=== PATIENT | male | born 1970 | race Caucasian/White ===

== ENCOUNTER 2018-12-14 05:57 | Inpatient (IN) ==
--- NOTE | 2018-11-26 14:28 | PAT Medication Instructions ---
Medication Instructions Date of Service November 26, 2018 Home Medications ibuprofen [Advil] 200 mg PO Q6H PRN ASK your surgeon for instructions ibuprofen [Advil] 200 mg PO Q6H PRN Other Notes If you have any questions please call us at [phone] or [phone] or [phone] or [phone]
--- NOTE | 2018-11-27 12:10 | Anesthesiology Consultation ---
Date of Service November 27, 2018 Assessment & Plan (1) Encounter for pre-operative examination: Chart Review Chart Review: Acceptable Risk for Surgery and Patient seen in Pre Admission Testing Teaching & Discussion Instructed NPO after midnight before surgery, except medications with 15 cc of water. Medication instructions provided according to the PAT guidelines. History Surgery Operation Date: 12/14/18 10:05 Proposed Procedures p L3-L5 Decompression and Fusion, Possible L5-S1 - Zak Hdez DO Height/Weight Height: 6 ft 1 in Weight: 148.2 kg Allergies Allergy/AdvReac Type Severity Reaction Status Date / Time No Known Allergies Allergy Unknown Verified 11/24/18 14:01 Medications Home Medications Medication Instructions Recorded Confirmed Last Taken ibuprofen [Advil] 200 mg PO Q6H PRN 11/24/18 11/24/18 Unknown Past Medical History Medical History No significant medical problems (Chronic) Chronic back pain Morbid obesity Past Surgical History Surgical History Hx of hernia repair left Past Anesthesia History No Hx of Anesthesia Complications and No Family Hx of Anesthesia Complications History of PONV No Motion Sickness Screening History of Motion Sickness: No Social History Smoking Status: Never smoker Do You Dip or Chew Tobacco: Yes (ADVISED NONE AM DOS) Hx Alcohol Use: Yes Alcohol type: beer alcohol intake frequency: 3 or more drinks per day Hx Substance Use: No Exercise / Class Metabolic Activity II 4-5 Yardwork/Stairs/Walk up hill (denies cp or sob with stairs) Review of Systems Pt denies any recent chest pain, shortness of breath, palpitations, cough, fever or URI. Physical Exam Vital Signs BP: 128/80 P: 67bpm SPO2: 97% RA T: 98.3 F R: 16 ENMT Mouth: + dental restorations (few crowns) and + chipped teeth (few); no loose teeth Thyromental Distance: > or= 3.5 Finger Breadths (3.5) Mallampati Class: II Neck + thick neck; neck extension not limited Respiratory normal respiratory effort Auscultation: lungs clear to auscultation bilaterally Cardiovascular Rate/Rhythm: regular rate and regular rhythm Heart Sounds: no murmur Vessels: no carotid bruit Extremities: no edema Testing Electrocardiogram Date: 11/27/18 Findings: + NSR @ (64) Nonspecific TWA in lateral leads, and non-specific change in ST segment in inferior leads. Since 06/24/05 EKG, nonspecific changes are now evident. Chest X-Ray Date: 11/27/18 Findings: + NAD Laboratory Results 11/27/18 11:38 11/27/18 11:38 Blood Type A Positive 11/27/18 11:38 Antibody Screen NEGATIVE 11/27/18 11:38 PT 10.3 Seconds (9.0-12.0) 11/27/18 11:38 INR 1.0 (0.9-1.1) 11/27/18 11:38 APTT 27.0 Seconds (21.0-31.0) 11/27/18 11:38 Urine Color Yellow 11/27/18 Unknown Urine Appearance Clear (Clear) 11/27/18 Unknown Urine pH 5.5 (4.5-7.5) 11/27/18 Unknown Ur Specific [place] 1.025 (1.000-1.030) 11/27/18 Unknown Urine Protein Negative (Negative) 11/27/18 Unknown Urine Glucose (UA) Negative (Negative) 11/27/18 Unknown Urine Ketones Trace (Negative) H 11/27/18 Unknown Urine Nitrite Negative (Negative) 11/27/18 Unknown Ur Leukocyte Esterase Negative (Negative) 11/27/18 Unknown
--- NOTE | 2018-11-27 12:35 | XRay Report ---
XR chest Pre-admission PA/Lat CLINICAL HISTORY: Preoperative evaluation. COMPARISON STUDY: No previous studies for comparison. FINDINGS: Lung volumes are normal. There is no pneumothorax or pleural effusion. There is no consolid ation or evidence for pulmonary edema. Cardiac size is normal. Mediastinal contours are normal. IMPRESSION: No acute cardiopulmonary findings. Electronically signed by: Philip Cee M.D. 11/27/2018 12:34 PM
[2018-11-27 13:02] LABS: Basophils # (auto) 0.01 K/uL (0-0.2); Basophils % (auto) 0.2 %; Eosinophils # (auto) 0.09 K/uL (0-0.5); Eosinophils % (auto) 1.4 %; Hematocrit (blood only) 42.2 % (42-52); Hemoglobin 15.3 g/dL (14.0-18.0); Immature Granulocytes # (auto) 0.01 K/uL (0.00-0.02); Immature Granulocytes % (auto) 0.2 %; Lymphocytes # (auto) 2.03 K/uL (1.2-3.4); Lymphocytes % (auto) 31.9 %; Mean Corpuscular Hgb Conc 36.3 g/dL (32-36); Mean Corpuscular Volume 90.9 fL (80-100); Monocytes # (auto) 0.72 K/uL (0.11-0.59); Monocytes % (auto) 11.3 %; Platelet Count 235 K/uL (130-400); RDW Coefficient of Variation 12.5 % (11.5-14.5); RDW Standard Deviation 41.8 fL (36.4-46.3); Red Blood Count 4.64 M/uL (4.7-6.1); White Blood Count 6.36 K/uL (4.8-10.8)
[2018-11-27 13:04] LABS: Appearance Urine Clear (Clear); Bilirubin Urine Negative (Negative); Blood Urine Negative (Negative); Color Urine Yellow; Glucose Urine UA Negative (Negative); Ketones Urine Trace (Negative); Leukocyte Esterase Urine Negative (Negative); Nitrite Urine Negative (Negative); Protein Urine Negative (Negative); Specific Gravity Urine 1.025 (1.000-1.030); Urobilinogen Urine Negative (Negative); pH Urine 5.5 (4.5-7.5)
[2018-11-27 13:14] LABS: BUN Creatinine Ratio 13.1 (10-20); Calcium 8.9 mg/dl (8.5-10.1); Creatinine Clr Calc Pharmacy 150.6 ml/min; Est GFR (African American) 115.8; Est GFR (Non-African American) 99.9; Potassium 3.8 mmol/L (3.5-5.1)
[2018-11-27 13:18] LABS: Prothrombin Time 10.3 Seconds (9.0-12.0)
[2018-12-14] MEDS ORDERED: CeleBREX 200 MG CAP PO SCH (06:00)
[2018-12-14] MEDS ORDERED: ACETAMINOPHEN 500 MG TAB PO SCH (06:00)
[2018-12-14] MEDS ORDERED: CEFAZOLIN 3000MG 65 ML IV SCH (06:00)
[2018-12-14] MEDS ORDERED: GABAPENTIN 300 MG x 3 PO SCH (06:00)
[2018-12-14] MEDS ORDERED: LR 15ML/HR IV SCH (06:00)
[2018-12-14] MEDS ORDERED: fentaNYL citrate 100 MCG/2 ML VIAL ONE ×5 (06:37→09:57)
[2018-12-14] MEDS ORDERED: MIDAZOLAM HCL 1 MG/ML 2ML VIAL ONE (06:37)
[2018-12-14] MEDS ORDERED: ONDANSETRON INJ 2 MG/ML 2 ML VIAL IV PRN ×2 (06:48→12:31)
[2018-12-14] MEDS ORDERED: ePHEDrine sulfate 50 MG/ML AMP IV PRN (06:48)
[2018-12-14] MEDS ORDERED: HYDROmorphone INJ 2 MG/ML SYR/VIAL IV PRN (06:48)
[2018-12-14] MEDS ORDERED: ATROPINE SULFATE 0.1 MG/ML 10ML SYR IV PRN (06:48)
[2018-12-14] MEDS ORDERED: PROPOFOL IV EMULSION 10 MG/ML 100 ML VIAL IV ONE (06:58)
[2018-12-14] MEDS ORDERED: BUPIVACAINE/EPINEPHRINE 0.5% MPF 1:200,000 30 ML VIAL ONE (06:58)
[2018-12-14] MEDS ORDERED: BACITRACIN INJ 50,000 UNIT VIAL ONE (06:58)
--- NOTE | 2018-12-14 07:26 | History & Physical Bridge Note ---
Date of Service December 14, 2018 History & Physical Bridge Note I have examined the patient, reviewed the History & Physical and in the interval since the performance of the History & Physical I have noted the following changes of clinical significance: no changes noted
--- NOTE | 2018-12-14 07:29 | History & Physical Report ---
Date of Service December 14, 2018 Assessment & Plan (1) Spinal stenosis, lumbar region with neurogenic claudication: L3-5 decompression and fusion possible L5-S1 Present on Admission?: Yes History of Present Illness Chief Complaint: Back and leg pain Primary Care Provider: Krishna Sharpe MD Chronic persistent back and leg pain. After failing extensive course of nonoperative care he is here for surgical intervention. Allergies Allergy/AdvReac Type Severity Reaction Status Date / Time No Known Allergies Allergy Unknown Verified 12/14/18 06:30 Home Medications Home Medications Medication Instructions Recorded Confirmed Type ibuprofen [Advil] 200 mg PO Q6H PRN 11/24/18 12/14/18 History Past Med/Surg History Medical History No significant medical problems (Chronic) Chronic back pain Morbid obesity Surgical History Hx of hernia repair left Social History Preferred Language: Hungarian Communication Ability: Effective Beliefs That Will Affect Care: None Current Living Situation: Spouse current occupational status: employed Other Information That Helps Us Care for You: No Feels Safe at Home: Yes Safety Concerns: Feels Safe At This Time Smoking Status: Never smoker Do You Dip or Chew Tobacco: Yes (ADVISED NONE AM DOS) Second Hand Exposure: No Hx Alcohol Use: Yes Alcohol type: beer Hx Substance Use: No Physical Exam Vital Signs (Past 24 Hours): Last Vital Signs Temp 36.8 C 12/14/18 06:25 Pulse 62 12/14/18 06:25 Resp 18 12/14/18 06:25 BP 145/91 H 12/14/18 06:25 Pulse Ox 97 12/14/18 06:25 Physical Exam: Patient is alert and oriented neurologically intact
[2018-12-14] MEDS ORDERED: HYDROmorphone INJ 2 MG/ML SYR/VIAL ONE ×2 (08:01→10:26)
[2018-12-14] MEDS ORDERED: GLYCOPYRROLATE 0.2 MG/ML VIAL ONE (08:19)
[2018-12-14] MEDS ORDERED: PROPOFOL IV EMULSION 10 MG/ML 20 ML VIAL IV ONE (08:19)
[2018-12-14] MEDS ORDERED: LARYING-O-JET KIT (LTA) ONE (08:19)
[2018-12-14] MEDS ORDERED: LIDOCAINE HCL 2% 2 ML VIAL/AMP(20MG/ML) INFIL ONE (08:19)
[2018-12-14] MEDS ORDERED: NEOSTIGMINE METHYLSULFATE 1 MG/ML 10ML VIAL ONE (08:19)
[2018-12-14] MEDS ORDERED: ONDANSETRON INJ 2 MG/ML 2 ML VIAL ONE (08:19)
[2018-12-14] MEDS ORDERED: ROCURONIUM BROMIDE 10 MG/ML 5 ML VIAL ONE (08:19)
[2018-12-14] MEDS ORDERED: DEXAMETHASONE SOD INJ 4 MG/ML VIAL ONE (08:19)
[2018-12-14] MEDS ORDERED: FLOSEAL HEMOSTATIC MATRIX 10ML TOP ONE (08:28)
--- NOTE | 2018-12-14 10:17 | Operative Report ---
Post Operative Report Pre & Post Diagnosis Operation Date: 12/14/18 07:45 Pre-Op Diagnosis: Spinal stenosis, lumbar region with neurogenic claudication Lumbar spondylolisthesis L4-5. Morbid obesity. Post-Op Diagnosis: Same Procedure Operation Date: 12/14/18 07:45 Actual Procedures #1 lumbar decompression bilateral medial facetectomies foraminotomies L2-3 L3-4 L4-5. #2 posterior spinal fusion L3-4 L4-5. #3 placed posterior segmental instrumentation L3-4 L4-5 per #4 interbody fusion L3-4 L4-5 per #5 placement of titanium 14 x 26 mm cage at L4-5 and 12 x 26 mm cage at L3-4. #6 placement of local autograft in the posterior lateral gutters. #7 placement infuse collagen sponge combined with mass graft in the posterior lateral gutters and ostial amp and interbody space. Surgeon Zak Hdez, DO Security Sales Manager Kathrin Barreto Estimated Blood Loss 550 Findings See Below Patient is 6 foot 1 inch and 146 kg with a BMI of 42.6. This combined with the blood loss in excess of 500 cc made t technically difficult adding at least an increase of 25% in operative time. Specimens None Indications This is a 48-year-old male who presents with spinal stenosis spinal listhesis and failed extensive course of nonoperative care like to undergo the above- mentioned procedure. Description of Procedure Patient was met with identified and informed consent obtained. He was then taken to the operative suite underwent intubation and placed in a prone position the Jorge table on top of the Luis frame. All bony prominences well-padded eyes inspected to ensure no external pressure placed upon the peer at this point the lumbar spine was prepped and draped in normal sterile fashion. Sharp dissection with the assistance of Bovie cautery was performed down to and exposing the lamina and transverse processes of L3-L4-L5 bilaterally. From a caudal to cephalad fashion complete laminectomy of L4 L3 partial laminectomy of L2 was performed including bilateral medial facetectomies and foraminotomies addressing severe stenosis. Pedicle screws were then placed in L3 L4-5 bilaterally with assistance of fluoroscopy and the probably size samia placed. By way of a transforaminal approach on the right complete discectomy of L4-5 was performed in plate graded to subcortical bleeding bone and a 14 x 26 mm titanium cage filled with osteo-amp bone graft tapped in position. I then proceeded L3-4 and again through a transforaminal approach on the right complete discectomy performed in plate coated to subcortical mean bone and a 12 x 26 mm titanium cage filled with osteo-amp bone graft tapped in position. Rods were then compressed locked in final position bilaterally. The transverse processes of L3-L4-L5 bur to subcortical bleeding bone. Infuse collagen sponge master graft local autograft placed in the posterior lateral gutters. 15 round LISBET drain inserted. Incision was then closed with 1 Vicryl in the fascia 2-0 Vicryl subcutaneous layer and 4-0 Monocryl for final skin closure. Steri-Strip sterile dressing placed. Patient will continue PACU stable disc. Please note Kathrin Barreto present at the entire procedure involved in patient positioning complex portions of the surgery and final skin closure. Lastly spinal cord monitoring was utilized throughout the procedure no changes were noted. I attest to the content of the Intraoperative Record and any orders documented therein. Any exceptions are noted below.
--- NOTE | 2018-12-14 10:21 | Fluoroscopy Report ---
LUMBAR SPINE, INTRAOPERATIVE FLUOROSCOPY HISTORY: L3-L5 posterior decompression and fusion. FLUOROSCOPY TIME: 18. FINDINGS: Intraoperative fluoroscopy was provided for the lumbar spine. 2 fluoroscopic spot images we re obtained. Posterior decompression fusion from L3 through L5 with pedicle screws and rods. The hard almaraz appears intact. IMPRESSION: Fluoroscopy provided for a L3-L5 posterior decompression and fusion. Electronically signed by: Shad Lloyd M.D. 12/14/2018 10:20 AM
[2018-12-14] MEDS ORDERED: KETOROLAC 30 MG/ML VIAL ONE (10:22)
[2018-12-14] MEDS ORDERED: ESMOLOL HCL INJ 10 MG/ML 10ML VIAL IV ONE (10:22)
[2018-12-14] MEDS: fentaNYL citrate 100 MCG/2 ML VIAL IV PRN ×2 (11:06→11:20)
--- NOTE | 2018-12-14 11:36 | Anesthesiology Progress Note ---
Date of Service December 14, 2018 Anesthesia Post Procedure Vital Signs Vital Signs: Temp Pulse Pulse Resp BP Pulse Ox 12/14/18 11:30 74 17 114/80 95 12/14/18 11:20 69 15 123/89 96 12/14/18 11:10 84 14 149/91 H 98 12/14/18 11:00 87 21 154/82 H 99 12/14/18 10:51 36.3 C L 89 17 151/80 H 99 12/14/18 06:25 36.8 C 62 18 145/91 H 97 Pain Intensity Lower Back: Pain Intensity: 3 Transfer of Care Handoff Completed per policy Notes Mental Status: alert / awake / arousable and participated in evaluation Patient Amnestic to Procedure: Yes Nausea / Vomiting: adequately controlled Pain: adequately controlled Airway Patency, RR, SpO2: stable & adequate BP & HR: stable & adequate Hydration State: stable & adequate Anesthetic Complications: no major complications apparent and Pt Satisfied with anesthetic care
[2018-12-14] MEDS ORDERED: ePHEDrine sulfate 50 MG/ML SYR ONE (11:51)
[2018-12-14] MEDS ORDERED: VOLUVEN IN NSS IV ONE (12:16)
[2018-12-14] MEDS ORDERED: DO NOT ADMINISTER PNEUMOCOCCAL VACCINE PRN (12:31)
[2018-12-14] MEDS ORDERED: METOCLOPRAMIDE HCL INJ 5 MG/ML 2 ML VIAL IV PRN (12:31)
[2018-12-14] MEDS ORDERED: PROMETHAZINE HCL 12.5 MG in SODIUM CHLORIDE 0.9% 50 ML IV PRN (12:31)
[2018-12-14] MEDS ORDERED: HYDROmorphone INJ 0.5 MG/0.5 ML SYR IV PRN (12:31)
[2018-12-14] MEDS ORDERED: LORazepam 0.5 MG TAB PO PRN (12:31)
[2018-12-14] MEDS ORDERED: LORazepam 0.5 MG/1 ML VIAL IV PRN (12:31)
[2018-12-14] MEDS ORDERED: ONDANSETRON 4 MG TAB PO PRN (12:31)
[2018-12-14] MEDS ORDERED: ACETAMINOPHEN 1,000 MG/100 ML VIAL IV PRN (12:31)
[2018-12-14] MEDS ORDERED: FAMOTIDINE 20 MG TAB PO PRN (12:31)
[2018-12-14] MEDS ORDERED: DO NOT ADMINISTER FLU VACCINE PRN (12:31)
[2018-12-14] MEDS ORDERED: MAGNESIUM HYDROXIDE SUSP 30 ML UDC PO PRN (12:31)
[2018-12-14] MEDS ORDERED: SOD PHOSPHATE/SOD BIPHOSPHATE ENEMA 132 ML BTL PR PRN (12:31)
[2018-12-14] MEDS ORDERED: BISACODYL 10 MG SUPP PR PRN (12:31)
[2018-12-14] MEDS ORDERED: ALUMINUM/MAGNESIUM SUSP 30 ML UDC PO PRN (12:31)
[2018-12-14] MEDS: LACTATED RINGER'S 1,000 ML IV SCH ×2 (13:06→19:34)
[2018-12-14] MEDS: KETOROLAC 30 MG/ML VIAL IV SCH ×2 (14:18→19:29)
[2018-12-14] MEDS: CEFAZOLIN 2000MG 2,000 MG/15 ML SYR IV SCH ×2 (16:20→23:53)
[2018-12-14] MEDS: OXYCODONE HCL IR 5 MG TAB (IMMEDIATE RELEASE) PO PRN (16:34)
[2018-12-14] MEDS: DOCUSATE SODIUM/SENNA 50/8.6MG TAB PO SCH (21:10)
[2018-12-15] MEDS: LACTATED RINGER'S 1,000 ML IV SCH (02:20)
[2018-12-15] MEDS: KETOROLAC 30 MG/ML VIAL IV SCH ×2 (02:21→07:40)
[2018-12-15] MEDS: POLYETHYLENE (MIRALAX) 17 GM PACK PO SCH ×3 (05:44→19:41)
[2018-12-15] MEDS: OXYCODONE HCL IR 5 MG TAB (IMMEDIATE RELEASE) PO PRN ×2 (05:45→15:17)
[2018-12-15 06:18] LABS: Hemoglobin 11.7 g/dL (14.0-18.0); Immature Granulocytes # (auto) 0.04 K/uL (0.00-0.02); Immature Granulocytes % (auto) 0.3 %; Lymphocytes # (auto) 1.54 K/uL (1.2-3.4); Lymphocytes % (auto) 11.5 %; Mean Corpuscular Hgb Conc 36.6 g/dL (32-36); Mean Corpuscular Volume 89.4 fL (80-100); Mean Platelet Volume 9.2 fL (7.4-10.4); Monocytes # (auto) 0.91 K/uL (0.11-0.59); Monocytes % (auto) 6.8 %; Neutrophils # (auto) 10.86 K/uL (1.4-6.5); Neutrophils % (auto) 81.4 %; Platelet Count 205 K/uL (130-400); RDW Coefficient of Variation 12.4 % (11.5-14.5); RDW Standard Deviation 40.3 fL (36.4-46.3); Red Blood Count 3.58 M/uL (4.7-6.1); White Blood Count 13.35 K/uL (4.8-10.8)
[2018-12-15 06:40] LABS: BUN Creatinine Ratio 12.9 (10-20); Creatinine Clr Calc Pharmacy 149.7 ml/min; Est GFR (African American) 115.8; Est GFR (Non-African American) 99.9
--- NOTE | 2018-12-15 07:44 | Anesthesiology Progress Note ---
Date of Service December 15, 2018 Anesthesia Post Procedure Vital Signs Vital Signs: Temp Pulse Pulse Resp BP Pulse Ox 12/15/18 06:54 36.8 C 61 18 143/76 H 98 12/15/18 03:05 36.7 C 71 18 133/68 96 12/14/18 22:55 36.7 C 71 18 132/70 95 12/14/18 19:13 36.6 C 66 17 137/78 97 12/14/18 15:19 36.4 C L 87 17 155/94 H 97 12/14/18 14:09 36.5 C 80 18 135/81 96 12/14/18 13:06 61 16 141/93 H 94 12/14/18 12:40 36.5 C 63 16 159/94 H 97 12/14/18 11:50 61 18 151/87 H 95 12/14/18 11:40 36.2 C L 64 18 152/70 H 95 12/14/18 11:30 74 17 114/80 95 12/14/18 11:20 69 15 123/89 96 12/14/18 11:10 84 14 149/91 H 98 12/14/18 11:00 87 21 154/82 H 99 12/14/18 10:51 36.3 C L 89 17 151/80 H 99 Pain Intensity Lower Back: Pain Intensity: 3 Bilateral Hip: Pain Intensity: 1 Notes Mental Status: alert / awake / arousable and participated in evaluation Patient Amnestic to Procedure: Yes Nausea / Vomiting: adequately controlled Pain: adequately controlled Airway Patency, RR, SpO2: stable & adequate BP & HR: stable & adequate Hydration State: stable & adequate Anesthetic Complications: no major complications apparent and Pt Satisfied with anesthetic care
--- NOTE | 2018-12-15 12:45 | Orthopedic Progress Note ---
Date of Service December 15, 2018 Assessment & Plan (1) Spinal stenosis, lumbar region with neurogenic claudication: This time we will continue physical therapy monitor his LISBET output. Anticipate discharge home . Present on Admission?: Yes Subjective Patient's back pain is controlled leg symptoms markedly improved. Physical Exam Physical Exam: On exam he is in the chair at the bedside. Is good strength testing. Appears comfortable. Results & Data Vital Signs (Past 12 Hours) Vital Signs Temp Pulse Resp BP Pulse Ox 12/15/18 10:47 36.6 C 66 18 144/78 H 96 12/15/18 06:54 36.8 C 61 18 143/76 H 98 12/15/18 03:05 36.7 C 71 18 133/68 96
[2018-12-15] MEDS: ACETAMINOPHEN 500 MG TAB PO PRN (20:08)
[2018-12-15] MEDS: DOCUSATE SODIUM/SENNA 50/8.6MG TAB PO SCH (21:12)
[2018-12-15] MEDS ORDERED: Nursing to Pharmacy Communication ONE (23:02)
[2018-12-16] MEDS: OXYCODONE HCL IR 5 MG TAB (IMMEDIATE RELEASE) PO PRN (03:30)
[2018-12-16] MEDS: ACETAMINOPHEN 500 MG TAB PO PRN (10:44)
--- NOTE | 2018-12-16 12:33 | Orthopedic Progress Note ---
Date of Service December 16, 2018 Assessment & Plan (1) Spinal stenosis, lumbar region with neurogenic claudication: This time we will continue physical therapy monitor his LISBET output anticipate discharge home tomorrow. Subjective Patient's back pain is controlled leg symptoms improved. Physical Exam Physical Exam: On physical exam is good strength testing appears comfortable. Results & Data Vital Signs (Past 12 Hours) Vital Signs Temp Pulse Resp BP Pulse Ox 12/16/18 06:44 36.7 C 87 18 144/81 H 97
[2018-12-16] MEDS: TRAMADOL HCL 50 MG TABLET PO PRN ×3 (13:16→23:41)
[2018-12-16] MEDS: DOCUSATE SODIUM/SENNA 50/8.6MG TAB PO SCH (20:17)
--- NOTE | 2018-12-17 08:52 | Discharge Summary ---
Date of Service December 17, 2018 Admission HPI Per Admitting Provider Chronic persistent back and leg pain. After failing extensive course of nonoperative care he is here for surgical intervention. Principal Diagnosis Lumbar spinal stenosis with neurogenic claudication Discharge Data Allergies Allergy/AdvReac Type Severity Reaction Status Date / Time No Known Allergies Allergy Unknown Verified 12/14/18 06:30 Consultations 12/14/18 12:31 Consult Case Management - Discharge Planning Routine Procedures Performed Operation Date: 12/14/18 07:45 Actual Procedures p L3-L5 Decompression and Fusion, with Spinal Cord Monitoring(Not Applicable) - Zak Hdez DO Ordered Studies 12/14/18 07:45 FL fluoroscopy <1hr Routine [place] lumbar spine 2-3V Routine Hospital Course (1) Spinal stenosis, lumbar region with neurogenic claudication: Patient underwent lumbar decompression fusion tolerated as well as taken to orthopedic for postoperative. Postop day 1 is up and ambulating nicely progressive postop day #2 LISBET drain decreasing appropriately. Separately discharged home postop day #3. Discharge orders and instructions can be found chart for further review. Total Time Total Time Spent Total Time Spent (In Minutes): 20 minutes Discharge Plan Discharge Items Patient Disposition: Home - Self-Care Reason For Visit: LUMBAR SPINAL STENOSIS W/NEUROGENIC CLAUDICATION Discharge Diagnosis: lumbar stenosis Discharge Goals: Decrease discomfort Activity: Per 'Additional Instructions' section Non-emergency contact: Primary Care Provider Call non-emergency contact if: you have any medication questions Follow-up/Referrals: Krishna Sharpe MD [Primary Care Provider] - Diet: Regular Addtl Provider Instructions: ACTIVITY RECOMMENDATIONS: SELF CARE INSTRUCTIONS AFTER THORACIC/LUMBAR FUSIONS 1. You may walk to your tolerance. It is good exercise for your legs and back. Expect some back and intermittent leg aches and pains. 2. You may perform "counter-top" level activities (make a sandwich, tej with a project, etc.). 3. No bending or lifting of more than 10 pounds or back twisting of any nature (roll like a log when turning in bed). 4. You may ride in a car for 20-30 minutes at a time. No driving until after your first visit with your doctor. 5. Frequent changes of position and restricting sitting to 30 minutes at a time will help limit the amount of back spasms and stiffness you may experience. 6. You may discontinue the use of ambulatory aids (cane, crutches, etc.) once your strength and confidence allow. 7. You may painter plate the shower and let water strike your incision when you arrive home at least once daily. Do not take a tub bath, sit in a hot tub or go into a swimming pool until after your first recheck in the office. SPECIAL CARE INSTRUCTIONS: VERY IMPORTANT TO READ AND REVIEW A. Your surgical incision has been closed with a cosmetic suture under the skin that will dissolve in about 6 weeks. In 14 days, you can use a pair of clean scissors and cut the suture that is left outside of the skin at the ends of your incision. 1. The small skin tapes can be removed 7 days after surgery if they have not fallen off by that point. 2. You may keep the wound open to air as much as possible to promote healing after post-op day number 5 unless told otherwise by your doctor. 3. If you think the wound looks like it is becoming infected (redness or worsening drainage) and/or you are experiencing fever, chill or worsening back pain and muscle spasms, contact the office so that we may evaluate you as soon as possible. B. Complications are uncommon, but please contact us if you have any signs or symptoms of: 1. wound infection (fever higher than 102.5 degrees F, redness, separation of wound, drainage, or increasing pain from the incision) 2. blood clots in legs (pain, swelling, redness and warmth in legs) 3. urinary tract infection (fever higher than 102.5 degrees F, burning upon urination or increased frequency of urination) 4. nerve problems (inability to walk on your toes or heels, numbness, loss of bowel or bladder control) 5. any other symptoms that concern you C. Please call the office at if you have any concerns or questions about your operation or recovery. D. No smoking! Smoking drastically decreases the chance of a solid fusion. E. Do not take any anti-inflammatory medications (Indocin, Advil, Motrin, Aspirin, Naprosyn, etc.) as these may inhibit the chance of a solid fusion. Tylenol is okay to take for pain. MANAGING PAIN AFTER SPINAL SURGERY 1. Narcotic medication is intended for short-term use and will be provided for surgical pain. Surgical pain usually lasts for a period of 4-6 weeks. Narcotic medication includes Percocet, Vicodin, Darvocet, Tylenol #3 or Lortab. 2. Longer-term pain is more appropriately treated with non-narcotic medication such as Tylenol ES. 3. Muscle spasm is not appropriately treated with narcotics. Muscle relaxers such as Soma, Flexeril or Skelaxin can be used along with Tylenol ES. 4. Remember that we all live with some "aches and pains". This is not unusual or uncommon after an injury or as we get older. a. Back pain is expected and may include muscle spasms for 4 to 6 weeks after surgery. The pain should gradually improve. If the pain worsens for no apparent reason, please contact the office. b. Intermittent leg pain may also be experienced and should not be concerned about unless it worsens for no apparent reason. If so, please contact the office. 5. We will provide appropriate medication within the normal guidelines of their prescribed use. We will also be very cautious and aware of potential abuse and extended duration of patients' medication needs. a. Pain medications are for your comfort and to assist with sleep and rest so that the tissue can heal. They are not provided in order to return to normal activity and should not be used through the day. To do so or worsening pain at night can result from ongoing tissue damage and development of tolerance to the prescribed medicine. 6. Please allow 2-3 days to process refills. Prescriptions will not be mailed but must be picked up at the office. FOLLOW UP VISIT: Keep your scheduled follow-up appointment. Any questions, please call the office at . Prescriptions: New tramadol 50 mg Tablet 50 mg PO Q4H PRN (Reason: Pain, Moderate) Qty: 30 RF: 0 oxycodone 5 mg Tablet 5 mg PO Q4H PRN (Reason: Pain, Severe) Qty: 30 RF: 0 Discontinued ibuprofen [Advil] 200 mg Tablet 200 mg PO Q6H PRN (Reason: Pain) RF: 0 Stand-Alone Forms: [facility] Discharge Orders: Discharge Order (Routine); Ordered 12/17/18 Ordered By: Zak Hdez Admission Data Admit Date/Time: 12/14/18 10:20 Attending Provider: Zak Hdez Admit Provider: Zak Hdez Primary Care Provider: Krishna Sharpe Service: Surgical Services
== END 2018-12-17 10:41 | disposition home or self-care (01) | DRG 454 ==
LOC: ASU 05:57 → 3E 10:20